=== PATIENT | female | born 1955 | race Caucasian/White ===

== ENCOUNTER → 2025-02-06 09:43 | Outpatient (REF) | payer MEDICARE, SELFPAY | LOC: WDC 09:43 | PROVIDERS: FAMILY PHYSICIAN Family Medicine | DX: Z12.31 Encounter for screening mammogram for malignant neoplasm of breast (principal) | CPT/HCPCS: 77063; 77067 ==

== ENCOUNTER → 2025-02-17 09:35 | Outpatient (REF) | payer MEDICARE, SELFPAY | LOC: WDC 09:35 | PROVIDERS: FAMILY PHYSICIAN Family Medicine | DX: R92.8 Other abnormal and inconclusive findings on diagnostic imaging of breast (principal) | CPT/HCPCS: 76642 ==

== ENCOUNTER → 2025-02-22 07:54 | Outpatient (REF) | payer MEDICARE, SELFPAY ==
--- NOTE | 2025-02-22 13:13 | OID.BR.INTR ---
[facility] Navigator - Initial
- -
Date of Contact: 02/22/25
Met with patient. Patient given written information on navigator service available at [facility]. Will follow up as needed per protocol.
== END ==
LOC: WDC 07:54
DX: N63.21 Unspecified lump in the left breast, upper outer quadrant (principal)
CPT/HCPCS: 19083; 88305; 88341; 88342; 88360; A4648